=== PATIENT | female | born 1955 | race Caucasian/White ===

== ENCOUNTER → 2017-01-20 | Outpatient (CLI) | payer BC ==
[~2017-01-20] MED LIST: ASPI-586 PO; MULT-35 PO
--- NOTE | 2017-01-20 13:15 | Diagnostic Imaging Report ---
INDICATION: Right shoulder pain. FINDINGS: Three views of the right shoulder show no fracture, dislocation or other acute abnormalities. IMPRESSION: Negative right shoulder. Dictated by: Dictated on workstation # [id number]
== END ==
LOC: RAD 12:45
PROVIDERS: ATTEND Nurse Practitioner Family
DX: M25.511 Pain in right shoulder (principal)
CPT/HCPCS: 73030

== ENCOUNTER → 2017-01-27 | Outpatient (CLI) | payer BC ==
--- NOTE | 2017-01-27 09:46 | Diagnostic Imaging Report ---
PROCEDURE: MRI right joint upper extremity without contrast. TECHNIQUE: Multiplanar, multisequence non contrast-enhanced MRI of the right upper extremity was accomplished. INDICATION: Right shoulder pain. FINDINGS: There is no os acromiale or Hill-Sachs deformity. The acromioclavicular joint demonstrates capsular hypertrophy with minimal inferior osteophytes. The long head biceps tendon demonstrates a longitudinal split tear with mild distraction of the involved fibers. This involves about 2.9 cm length of the tendon around the bicipital groove level. There is also medial dislocation of the tendon over the medial lip of the bicipital groove. There is poor definition of the distal subscapularis tendon compatible with a high-grade tear. The supraspinatus and infraspinatus tendons demonstrate partial tears in their distal aspects. Minimal amount of reactive fluid is seen in the subacromial subdeltoid bursa. No retracted tear. There is increased signal in the superior segment of the labrum posterior to the biceps anchor which may relate to degeneration or nondisplaced tear. No significant muscle atrophy around the shoulder. There is minimal subchondral cyst formation seen along the lateral anterior aspect of the humeral head with no significant bone marrow signal abnormality otherwise. IMPRESSION: 1. Longitudinal split tear of the long head biceps tendon which is also dislocated medially. 2. Poor visualization of the distal subscapularis tendon suggestive of a high-grade tear. 3. Partial tears in the distal supraspinatus and infraspinatus tendons. Dictated by: Dictated on workstation # [id number]
== END ==
LOC: RAD 07:51
PROVIDERS: ATTEND Nurse Practitioner Family
DX: S46.011A Strain of muscle(s) and tendon(s) of the rotator cuff of right shoulder, initial encounter (principal); S46.811A Strain of other muscles, fascia and tendons at shoulder and upper arm level, right arm, initial encounter; X58.XXXA Exposure to other specified factors, initial encounter; Y99.8 Other external cause status
CPT/HCPCS: 73221

== ENCOUNTER 2017-05-18 11:30 | Outpatient (RCR) | payer BC | END 2017-06-04 08:40 | disposition home or self-care (01) | PROVIDERS: ATTEND Orthopaedic Surgery | DX: Z47.89 Encounter for other orthopedic aftercare (principal); M25.511 Pain in right shoulder ==

== ENCOUNTER → 2019-07-17 | Outpatient (CLI) | payer BC ==
--- NOTE | 2019-07-17 12:16 | Diagnostic Imaging Report ---
INDICATION: Routine screening. COMPARISON: 03/05/2015. TECHNIQUE: 2D and 3D bilateral screening mammography was performed with CAD. FINDINGS: Scattered fibroglandular densities are identified bilaterally. The benign nodular density in the central right breast appears stable. No spiculated masses or malignant appearing microcalcifications are seen. The axillae are unremarkable. IMPRESSION: No mammographic features suspicious for malignancy are identified. ACR BI-RADS Category 2: Benign findings. Result letter will be mailed to the patient. Note: At least 10% of breast cancer is not imaged by mammography. Dictated by: Dictated on workstation # [id number]
== END ==
LOC: RAD 08:38
PROVIDERS: ATTEND Nurse Practitioner Family
DX: Z12.31 Encounter for screening mammogram for malignant neoplasm of breast (principal)
CPT/HCPCS: 77067

== ENCOUNTER → 2020-02-19 | Outpatient (CLI) | payer BC ==
[~2020-02-19] MED LIST changes: +CATHETER FLUSH 10 ML SYR IV PRN; +HOLD METFORMIN - RECEIVED CONTRAST 20 ML VIAL IV SCH; +IOHEXOL 350 MG/ML 100 ML (OMNIPAQUE 350) VIAL IV ONE; +NS 100 ML (IVPB) BAG IV ONE
[2020-02-19 11:05] LABS: BUN/CREATININE RATIO 17; CREATININE SERUM 0.87 MG/DL (0.60-1.30); GFR ESTIMATED > 60
--- NOTE | 2020-02-19 12:15 | Diagnostic Imaging Report ---
PROCEDURE: CT abdomen and pelvis with contrast. TECHNIQUE: Multiple contiguous axial images were obtained through the abdomen and pelvis after administration of intravenous contrast. Auto Exposure Controls were utilized during the CT exam to meet ALARA standards for radiation dose reduction. DATE: February 19, 2020. COMPARISON: None. INDICATION: 64-year-old female, right-sided abdominal pain. FINDINGS: The visualized portions of the lung bases are clear. The heart is not enlarged. There is no identified pericardial effusion. The liver is unremarkable in size and contour. There is a 3 mm low-attenuation lesion in the dome of the liver on axial image 7 which is too small to characterize. The main, right, and left portal veins are patent. The gallbladder is not seen and may be surgically absent or contracted. There is no intrahepatic or extrahepatic bile duct dilation. The main pancreatic duct is not abnormally dilated. There is fatty replacement of the pancreatic parenchyma at the level of the pancreatic head and uncinate process. Additional evaluation of the pancreatic parenchyma is unremarkable. The spleen is normal in size. The adrenal glands are unremarkable. There is a 4 mm nonobstructing right renal stone on axial image 35. There is a 4 mm nonobstructing left renal stone on axial image 28. Additional evaluation of the renal parenchyma is unremarkable. The urinary collecting systems are not distended. There is no identified ureteral stone. Urinary bladder is underdistended and not particularly well evaluated although without identified abnormality. The uterus and adnexa are unremarkable in appearance on CT assessment. There is diverticulosis without evidence to suggest acute diverticulitis. There is a moderate to large volume stool in the colon with large volume stool in the right colon. The appendix is not well seen. There are no identified secondary findings to specifically suggest acute appendicitis. There is no free intraperitoneal air. There is no drainable fluid collection. There is no free pelvic fluid. There are mild atherosclerotic calcifications noted. There is no identified abnormally enlarged lymph node in the abdomen or pelvis which is specifically meeting CT size criteria for adenopathy. There are multilevel degenerative changes of the spine. There is grade 1 anterolisthesis of L4 on L5 and also of L5 on S1. There are bilateral L5 pars interarticularis defects. There is no identified acute bony abnormality. IMPRESSION: CT ABDOMEN AND PELVIS. 1. Moderate to large volume stool in general in the colon with large volume colonic stool in the right colon. 2. Diverticulosis without evidence of acute diverticulitis. 3. Nonobstructing renal stones bilaterally. No ureteral stone or hydronephrosis. 4. Bilateral L5 pars interarticularis defects with grade 1 anterolisthesis of L5 on S1. There are additional degenerative changes of the spine and also grade 1 anterolisthesis of L4 on L5 relating to facet arthropathy. Dictated by: Dictated on workstation # [id number]
== END ==
LOC: RAD 10:20
PROVIDERS: ATTEND Nurse Practitioner Family
DX: K57.30 Diverticulosis of large intestine without perforation or abscess without bleeding (principal); N20.0 Calculus of kidney; M43.17 Spondylolisthesis, lumbosacral region
CPT/HCPCS: 36415; 74177; 82565; 84520

== ENCOUNTER → 2021-07-10 | Outpatient (CLI) | payer BC, MEDICARE ==
[~2021-07-10] MED LIST changes: -CATHETER FLUSH 10 ML SYR IV PRN; -HOLD METFORMIN - RECEIVED CONTRAST 20 ML VIAL IV SCH; -IOHEXOL 350 MG/ML 100 ML (OMNIPAQUE 350) VIAL IV ONE; -NS 100 ML (IVPB) BAG IV ONE
--- NOTE | 2021-07-10 12:49 | Diagnostic Imaging Report ---
Indication: Routine screening. Comparison is made with prior mammogram from 07/17/2019 and 03/05/2015. 2-D and 3-D bilateral screening mammography was performed with CAD. Scattered fibroglandular densities are identified bilaterally. Small benign nodule right breast is stable. No spiculated mass or malignant-appearing microcalcifications are seen. Axillae are unremarkable. IMPRESSION: BI-RADS Category 2 No mammographic features suspicious for malignancy are identified. ACR BI-RADS Category 2: Benign findings. Result letter will be mailed to the patient. Note: At least 10% of breast cancer is not imaged by mammography. Dictated by: Dictated on workstation # [id number]
== END ==
LOC: RAD 10:26
PROVIDERS: ATTEND Nurse Practitioner Family
DX: Z12.31 Encounter for screening mammogram for malignant neoplasm of breast (principal)
CPT/HCPCS: 77063; 77067

== ENCOUNTER 2021-08-12 05:36 | Outpatient (CLI) | payer MEDICARE ==
[~2021-08-12] VITALS: Ht 160 cm; Wt 97.8 kg
[2021-08-12] MEDS ORDERED: ESCI20TA39 PO (13:36)
[2021-08-12] MEDS ORDERED: ASPI-999 PO (13:36)
[2021-08-12] MEDS ORDERED: LISI20TA26 PO (13:36)
[2021-08-12] MEDS ORDERED: MULT400C3 PO (13:36)
== END 2021-08-12 15:10 | disposition home or self-care (01) ==
LOC: PREOP 05:36
PROVIDERS: ATTEND Surgery
DX: Z01.818 Encounter for other preprocedural examination (principal)

== ENCOUNTER → 2021-08-19 | Day surgery (SDC) | payer MEDICARE ==
[~2021-08-19] VITALS: Ht 160 cm; Wt 97.8 kg
[~2021-08-19] MED LIST changes: +ASPI-999 PO; +ESCI20TA39 PO; +LACTATED RINGERS 1,000 ML IV ONE; +LACTATED RINGERS 1,000 ML IV STA; +LISI20TA26 PO; +MIDAZOLAM 2 MG/2 ML (VERSED) VIAL ONE; +MULT400C3 PO; +PROPOFOL INJECTION 50 ML IV ONE
[2021-08-19 10:20] VITALS: BP 141/91
--- NOTE | 2021-08-19 10:37 | Progress Note-Pre Operative ---
Pre-Operative Progress Note H&P Reviewed The H&P was reviewed, patient examined and no changes noted. Date Seen by Provider: Aug 19, 2021 Time Seen by Provider: 10:36 Date H&P Reviewed: Aug 19, 2021 Time H&P Reviewed: 10:37 Pre-Operative Diagnosis: family history of colon cancer JASON LEACH DO Aug 19, 2021 10:37
[2021-08-19 11:17] VITALS: BP 92/50
[2021-08-19 11:20] VITALS: BP 99/55
--- NOTE | 2021-08-19 11:20 | Progress Note-Post Operative ---
Post-Operative Progess Note Surgeon (s)/Axle And Frame Mechanic (s) Surgeon JASON LEACH DO Axle And Frame Mechanic: na Pre-Operative Diagnosis family history of colon cancer Post-Operative Diagnosis sigmoid colon polyps x2 Diverticulosis Procedure & Operative Findings Date of Procedure 08/19/21 Procedure Performed/Findings Colonoscopy and hot biopsy with polypectomy x2 Anesthesia Type per BIOMETRY TEACHER Estimated Blood Loss Estimated blood loss (mL): None Specimens/Packing Specimens Removed Sigmoid polypectomy x2 JASON LEACH DO Aug 19, 2021 11:20
--- NOTE | 2021-08-19 11:21 | Discharge Inst-Simple/Standard ---
Discharge Inst-Standard Patient Instructions/Follow Up Plan of Care/Instructions/FU: 2 weeks Susu Activity as Tolerated: Yes Discharge Diet: Regular Diet (high fiber) JASON LEACH DO Aug 19, 2021 11:21
[2021-08-19 11:25] VITALS: BP 103/52
[2021-08-19 11:35] VITALS: BP 103/52
[2021-08-19 11:57] VITALS: BP 132/72
--- NOTE | 2021-08-19 12:31 | Anesthesia-General Post-Op ---
MAC Patient Condition Mental Status/LOC: Same as Preop Cardiovascular: Satisfactory Nausea/Vomiting: Absent Respiratory: Satisfactory Pain: Controlled Complications: Absent Post Op Complications Complications None Follow Up Care/Instructions Patient Instructions None needed. Anesthesiology Discharge Order Discharge Order Patient is doing well, no complaints, stable vital signs, no apparent adverse anesthesia problems. No complications reported per nursing. JACE GOMEZ CRNA Aug 19, 2021 12:31
--- NOTE | 2021-08-19 17:58 | OPERATIVE REPORT ---
DATE OF SERVICE: 08/19/2021 PREOPERATIVE DIAGNOSIS: Family history of colon cancer. POSTOPERATIVE DIAGNOSES: Sigmoid colon polyps x2, diverticulosis. PROCEDURE: Colonoscopy and hot biopsy polypectomy x2. SURGEON: Jason Cristobal DO ANESTHESIA: Per RESEARCH COMPLIANCE SPECIALIST. ESTIMATED BLOOD LOSS: None. COMPLICATIONS: None. INDICATIONS: The patient is a 65-year-old female needing colonoscopy. She understands risks and benefits of procedure and wishes to proceed. Consent was signed in the chart. DESCRIPTION OF PROCEDURE: The patient was taken to the endoscopy suite, placed in left lateral recumbent position. Timeout was performed. Digital rectal exam was performed. There were no palpable polyps, masses or ulcerations. Scope was inserted in the rectum and advanced all the way to cecum with minimal difficulty. Prep was adequate. Scope was slowly retracted back. There were no polyps, masses or ulcerations within the cecum, ascending, transverse and descending colon. In the sigmoid colon, a moderate amount of diverticulosis is present. No polyps were present, which hot biopsy polypectomies were performed. Scope was then continuously retracted back. No polyps, masses or ulcerations in remainder of the sigmoid colon and rectum. Scope was retroflexed noting no other pathology. Scope was returned to its normal position, slowly withdrawn until completely removed. The patient tolerated procedure well without any complications. She was taken to recovery room in stable condition. RECOMMENDATIONS: The patient will need repeat colonoscopy in 5 years. Any issues before that be seen at that time. We would recommend high fiber diet due to diverticulosis. Job ID: [id number] DocumentID: [id number] Dictated Date: 08/19/2021 11:27:23 Construction Electrician Date: 08/19/2021 17:58:29 Dictated By: JASON CRISTOBAL DO
== END | disposition home or self-care (01) ==
LOC: ENDO 09:56
PROVIDERS: ATTEND Surgery
DX: Z12.11 Encounter for screening for malignant neoplasm of colon (principal); K63.89 Other specified diseases of intestine; K63.5 Polyp of colon; K57.30 Diverticulosis of large intestine without perforation or abscess without bleeding; I10 Essential (primary) hypertension; F41.9 Anxiety disorder, unspecified; Z90.49 Acquired absence of other specified parts of digestive tract; Z87.891 Personal history of nicotine dependence; Z79.82 Long term (current) use of aspirin; Z80.0 Family history of malignant neoplasm of digestive organs; Z79.899 Other long term (current) drug therapy; Z79.02 Long term (current) use of antithrombotics/antiplatelets
CPT/HCPCS: 88305

== ENCOUNTER → 2022-07-21 | Outpatient (CLI) | payer MEDICARE ==
[~2022-07-21] MED LIST changes: -LACTATED RINGERS 1,000 ML IV ONE; -LACTATED RINGERS 1,000 ML IV STA; -MIDAZOLAM 2 MG/2 ML (VERSED) VIAL ONE; -PROPOFOL INJECTION 50 ML IV ONE
--- NOTE | 2022-07-21 11:22 | Diagnostic Imaging Report ---
INDICATION: Postmenopausal state. COMPARISON: None available. FINDINGS: AP Spine L1-L4: [BMD (g/cm2): 0.749] [T-Score: -3.8] [Z-Score: -3.2] [BMD Previous: na] [BMD % Change: na] LT Hip Neck: [BMD (g/cm2): 0.712] [T-Score: -2.3] [Z-Score: -1.5] LT Hip Total: [BMD (g/cm2):0.816] [T-Score:-1.5] [Z-Score: -1.0] [BMD Previous: na] [BMD % Change: na] RT Hip Neck: [BMD (g/cm2):0.754] [T-Score:-2.0] [Z-Score:-1.2] RT Hip Total: [BMD (g/cm2):0.839] [T-score:-1.3] [Z-Score:-0.8] [BMD Previous:na] [BMD % Change:na] *Indicates significant change from prior examination based on 95% confidence level. World Health Organization criteria for BMD interpretation classify patients as Normal (T-score at or above -1.0), Osteopenic (T-score between -1.0 and -2.5) or Osteoporotic (T-score at or below -2.5). LIMITATIONS AND MODIFICATION: None. IMPRESSION: 1. Osteoporosis. 2. Baseline examination. 3. See below National Osteoporosis Foundation guidelines on when to potentially initiate pharmacologic therapy. Based on the National Osteoporosis Foundation Guidelines, pharmacologic treatment should be initiated in any of the following, unless clinical conditions suggest otherwise: * Any patient with prior fragility fracture of the hip or vertebrae. A spine fracture indicates 5X risk for subsequent spine fracture and 2X risk for subsequent hip fracture. * Osteoporosis (T-score <-2.5). * Postmenopausal women and men age 50 and older with low bone mass/osteopenia (T-score between -1.0 and -2.5) by DXA and 10-year major osteoporotic fracture greater than 20% or a 10-year probability of hip fracture greater than 3%. These fracture risks are supplied above in the FRAX score, if applicable. * Clinician judgement and/or patient preferences may indicate treatment for people with 10-year fracture probabilities above or below these levels. Dictated by: Dictated on workstation # [id number]
--- NOTE | 2022-07-21 14:50 | Diagnostic Imaging Report ---
INDICATION: Routine screening. COMPARISON: 07/10/2021 and 07/17/2019. TECHNIQUE: 2D and 3D bilateral screening mammography was performed with CAD. FINDINGS: Both breasts are primarily involutional. The benign nodule in the right breast is stable. No new mass or malignant-appearing microcalcifications are seen. The axillae are unremarkable. IMPRESSION: No mammographic features suspicious for malignancy are identified. ACR BI-RADS Category 2: Benign findings. Result letter will be mailed to the patient. Note: At least 10% of breast cancer is not imaged by mammography. Dictated by: Dictated on workstation # [id number]
== END ==
LOC: RAD 09:10
PROVIDERS: ATTEND Family Medicine
DX: Z12.31 Encounter for screening mammogram for malignant neoplasm of breast (principal); M81.0 Age-related osteoporosis without current pathological fracture; Z78.0 Asymptomatic menopausal state
CPT/HCPCS: 77063; 77067; 77080

== ENCOUNTER → 2023-08-02 | Outpatient (CLI) | payer MEDICARE ==
--- NOTE | 2023-08-02 12:53 | Diagnostic Imaging Report ---
INDICATION: Routine screening. COMPARISON: 07/21/2022 and 07/10/2021. TECHNIQUE: 2D and 3D bilateral screening mammography was performed with CAD. FINDINGS: Scattered fibroglandular densities are identified bilaterally. A benign nodule in the right breast is stable. No new mass or malignant-appearing microcalcifications are identified. The axillae are unremarkable. IMPRESSION: No mammographic features suspicious for malignancy are identified. ACR BI-RADS Category 2: Benign findings. Result letter will be mailed to the patient. Note: At least 10% of breast cancer is not imaged by mammography. Dictated by: Dictated on workstation # [id number]
== END ==
LOC: RAD 09:53
PROVIDERS: ATTEND Family Medicine
DX: Z12.31 Encounter for screening mammogram for malignant neoplasm of breast (principal)
CPT/HCPCS: 77063; 77067